=== PATIENT | female | born 1970 | race Caucasian/White ===

== ENCOUNTER 2020-04-24 14:39 | Outpatient (CLI) | payer MEDICAID, SELFPAY ==
[2020-04-24 14:54] LABS: Basophils Absolute Auto 0.1 K/mm3 (0.0-0.1); Basophils Percent Auto 0.9 % (0.2-1.2); Eosinophils Absolute Auto 0.3 K/mm3 (0-0.3); Eosinophils Percent Auto 3.6 % (0-4.4); Hematocrit 43.1 % (37.0-47.0); Hemoglobin 13.9 g/dL (12.0-15.0); Immature Granulocyte Absolute 0.01 K/mm3 (0.00-0.031); Immature Granulocyte Percent A 0.1 % (0-0.5); Immature Platelet Fraction Pct 12.5 % (0.9-11.2); Lymphocytes Absolute Auto 2.17 K/mm3 (0.9-3.2); Lymphocytes Percent Auto 31.3 % (18.3-44.2); Mean Corpuscular HGB Conc 32.3 g/dl (32-36); Mean Corpuscular Hemoglobin 27.6 pg (26-34); Mean Corpuscular Volume 85.7 fl (80-100); Monocytes Absolute Auto 0.5 K/mm3 (0.1-0.6); Monocytes Percent Auto 7.5 % (2.6-8.5); Neutrophils Absolute Auto 3.9 K/mm3 (1.3-6.7); Neutrophils Percent Auto 56.6 % (45.5-73.1); Platelet Count Result 213 k/mm3 (150-375); Red Blood Count 5.03 M/mm3 (4.2-5.4); Red Cell Distribution Width 22.2 % (11.5-14.5); White Blood Count 6.9 K/mm3 (4.5-10.0)
[2020-04-24 16:47] LABS: Iron 87 ug/dL (37-170)
[2020-04-24 16:50] LABS: Blood Urea Nitrogen 9 mg/dL (7-17); Calcium 9.6 mg/dL (8.4-10.2); Carbon Dioxide 30 mmol/L (22-30); Chloride 101 mmol/L (98-107); Estimated Glomerular Filt Rate > 60; Glucose 92 mg/dL (65-105); Potassium 4.1 mmol/L (3.4-5.0); Sodium 139 mmol/L (137-145)
[2020-04-24 17:01] LABS: Percent Iron Saturation 26 % (20-50)
== END 2020-04-24 14:40 | disposition home or self-care (01) ==
LOC: ANHLAB 14:42
PROVIDERS: PCP Physician Assistant; Visit Provider Internal Medicine Hematology & Oncology
DX: C50.412 Malignant neoplasm of upper-outer quadrant of left female breast (principal); Z17.0 Estrogen receptor positive status [ER+]; D50.9 Iron deficiency anemia, unspecified
CPT/HCPCS: 36415; 80048; 82728; 83540; 83550; 85025; 85055

== ENCOUNTER 2020-08-01 12:20 | Outpatient (CLI) | payer OTHER, MEDICAID, SELFPAY ==
[2020-08-01 13:00] LABS: Basophils Absolute Auto 0.1 K/mm3 (0.0-0.1); Basophils Percent Auto 0.8 % (0.2-1.2); Eosinophils Absolute Auto 0.4 K/mm3 (0-0.3); Eosinophils Percent Auto 5.3 % (0-4.4); Hematocrit 38.5 % (37.0-47.0); Hemoglobin 12.2 g/dL (12.0-15.0); Immature Granulocyte Absolute 0.03 K/mm3 (0.00-0.031); Immature Granulocyte Percent A 0.4 % (0-0.5); Lymphocytes Absolute Auto 2.41 K/mm3 (0.9-3.2); Lymphocytes Percent Auto 32.6 % (18.3-44.2); Mean Corpuscular HGB Conc 31.7 g/dl (32-36); Mean Corpuscular Hemoglobin 27.9 pg (26-34); Mean Corpuscular Volume 88.1 fl (80-100); Monocytes Absolute Auto 0.5 K/mm3 (0.1-0.6); Monocytes Percent Auto 6.8 % (2.6-8.5); Neutrophils Percent Auto 54.1 % (45.5-73.1); Platelet Count Result 230 k/mm3 (150-375); Red Blood Count 4.37 M/mm3 (4.2-5.4); Red Cell Distribution Width 12.9 % (11.5-14.5); White Blood Count 7.4 K/mm3 (4.5-10.0)
[2020-08-01 14:17] LABS: Erythrocyte Sedimentation Rate 22 mm/hr (0-20)
[2020-08-01 15:22] LABS: Iron 44 ug/dL (37-170)
[2020-08-01 15:24] LABS: Creatinine Urine 123.6 mg/dL; Total Protein Urine Random 6 mg/dL
[2020-08-01 15:25] LABS: Add Urine Microscopic? YES; Appearance Urine Clear (Clear); Bilirubin Urine Negative (Negative); Blood Urine Negative (Negative); Color Urine Yellow (Yellow); Glucose Urine UA Negative (Negative); Ketones Urine Negative (Negative); Leukocyte Esterase Ur Trace LEU/UL (Negative); Mucus Urine Rare /lpf; Nitrate Urine Negative (Negative); Protein Urine Negative (Negative); RBC Urine 0-2 /hpf (0-2); Specific Grav Ur 1.021 (1.001-1.035); Squamous Epithelial Cell Urine Many /hpf (Few); Urobilinogen Urine Negative mg/dL (<2.0); WBC Urine 0-3 /hpf
[2020-08-01 15:26] LABS: Alanine Aminotransferase 53 U/L (4-35); Alkaline Phosphatase 173 U/L (38-126); Anion Gap 7 mmol/L (8-16); Aspartate Amino Transferase 54 U/L (14-36); Bilirubin,Total 0.6 mg/dL (0.2-1.3); Blood Urea Nitrogen 13 mg/dL (7-17); CRP < 0.5 mg/dL (<1.0); Calcium 9.2 mg/dL (8.4-10.2); Carbon Dioxide 28 mmol/L (22-30); Chloride 101 mmol/L (98-107); Estimated Glomerular Filt Rate > 60; Glucose 95 mg/dL (65-105); Potassium 4.2 mmol/L (3.4-5.0); Sodium 136 mmol/L (137-145); Uric Acid 5.1 mg/dL (2.5-7.5)
[2020-08-01 15:30] LABS: Complement C3 142 mg/dL (88-165); Rheumatoid Factor < 8.6 IU/ML (<12)
[2020-08-01 15:33] LABS: Percent Iron Saturation 10 % (20-50)
[2020-08-01 15:38] LABS: Vitamin D 25 Hydroxy 12.9 ng/mL
[2020-08-01 15:57] LABS: Ferritin 8.97 ng/mL (6.24-137)
[2020-08-03 11:08] LABS: SS-A <1.0; SS-B <1.0
[2020-08-03 21:05] LABS: Lupus dRVVT 1:1 Mix Interpreta Not Indicated; Lupus dRVVT Screen 34 sec (<=45); PTT-LA Screen 37 sec (<=40)
[2020-08-03 21:26] LABS: Anti Cyclic Citrullinated Pept <16 Units (<20)
[2020-08-04 06:15] LABS: Angiotensin Converting Enzyme 22 U/L (9-67)
[2020-08-06 07:15] LABS: SM Antibody <1.0; SM/RNP Antibody <1.0
== END 2020-08-01 12:21 | disposition home or self-care (01) ==
PROVIDERS: Internal Medicine Hematology & Oncology; PCP Physician Assistant; Visit Provider Internal Medicine
DX: E55.9 Vitamin D deficiency, unspecified (principal); M05.79 Rheumatoid arthritis with rheumatoid factor of multiple sites without organ or systems involvement; M19.90 Unspecified osteoarthritis, unspecified site; D64.9 Anemia, unspecified; C50.412 Malignant neoplasm of upper-outer quadrant of left female breast; Z17.0 Estrogen receptor positive status [ER+]
CPT/HCPCS: 36415; 80053; 81001; 82164; 82306; 82570; 82728; 83540; 83550; 84156; 84550; 85025; 85613; 85652; 85730; 86038; 86140; 86160; 86200; 86225; 86235; 86430

== ENCOUNTER 2020-08-01 13:37 | Outpatient (CLI) | payer OTHER, SELFPAY ==
--- NOTE | ~2020-08-01 | XR_ITS ---
EXAMINATION: XR foot LT standing 2V EXAM DATE: 08/01/2020 14:12 INDICATION: Rheumatoid arthritis. TECHNIQUE: Left foot frontal and lateral projections. There is no prior study for comparison. FINDINGS: There is moderate talonavicular osteoarthritis, could be primary or posttraumatic. There a re no bony erosions identified. There are no acute fractures or dislocations identified. There is no subcutaneous gas. The soft tissue is unremarkable. There are no radiopaque foreign bodies. Tiny posterior calcaneal spur. IMPRESSION: Left talonavicular moderate osteoarthritis. Reviewed, dictated and finalized at location A.
--- NOTE | ~2020-08-01 | XR_ITS ---
EXAMINATION: XR foot RT standing 2V EXAM DATE: 08/01/2020 14:12 INDICATION: Rheumatoid arthritis. TECHNIQUE: Frontal and lateral projections of the right foot. There is no prior study for compariso n. FINDINGS: There are no bony erosions identified. There are no acute fractures or dislocations identi fied. There is no subcutaneous gas. The soft tissue is unremarkable. There are no radiopaque fore ign bodies. Small posterior and inferior calcaneal spurs. IMPRESSION: Small calcaneal spurs. Reviewed, dictated and finalized at location A. IMPRESSION: Small calcaneal spurs.
--- NOTE | ~2020-08-01 | XR_ITS ---
XR chest 2V DATE: 08/01/2020 14:12 INDICATION: Rheumatoid arthritis TECHNIQUE: PA and lateral views COMPARISON: None FINDINGS: Normal heart size. No hilar or mediastinal enlargement.. Mild infiltrate, atelectasis, mass or fibrotic change in the right upper lung; consider follow-up chest Sore CT thorax. The lungs otherwise appear clear of infiltrate or consolidation. No pleural effusion or pulmonary vascular congestion or pneumothorax. Bilateral breast implants. Surgical clips overlie the upper abdomen, likely due to cholecystectomy. IMPRESSION: Mild infiltrate, atelectasis, mass or fibrotic change is suggested right upper lobe; cons ider follow-up chest radiographs or CT thorax Reviewed, dictated and finalized at location A. IMPRESSION: Mild infiltrate, atelectasis, mass or fibrotic change is suggested right upper lobe; consider follow-up chest radiographs or CT thorax
--- NOTE | ~2020-08-01 | XR_ITS ---
EXAMINATION: XR hand BI arthritis min 3V EXAM DATE: 08/01/2020 14:12 INDICATION: Rheumatoid arthritis. Breast cancer. TECHNIQUE: Right hand frontal, lateral and oblique projections obtained and reviewed. Left hand fron azeb, lateral and oblique projections obtained and reviewed. Catchers projection of both hands. There is no prior study for comparison. FINDINGS: Right hand: Small punched-out periarticular erosions most apparent at the 2nd metacarpophalangeal marisel nt, 4th metacarpal head, and the scattered throughout the carpal bones, with significant loss of the radiocarpal and midcarpal joint spaces. Appearance is consistent with rheumatoid arthritis. There is ulnar minus variance. Left hand: Large erosion in the lunate at the scapholunate articulation, several other smaller carpal periarticular erosions suspected. Radiocarpal and midcarpal joint spaces are preserved. Metacarpopha langeal and interphalangeal joints are normal in appearance. IMPRESSION: Bilateral hand periarticular erosions consistent with rheumatoid arthritis, significantly more advanced on the right with loss of radiocarpal and midcarpal joint spaces. Reviewed, dictated and finalized at location A. IMPRESSION: Bilateral hand periarticular erosions consistent with rheumatoid ar thritis, significantly more advanced on the right with loss of radiocarpal and midcarpal joint spaces.
== END 2020-08-01 13:38 | disposition home or self-care (01) ==
LOC: ANHIMG 13:45
PROVIDERS: PCP Physician Assistant; Visit Provider Internal Medicine
DX: M05.79 Rheumatoid arthritis with rheumatoid factor of multiple sites without organ or systems involvement (principal); E55.9 Vitamin D deficiency, unspecified; M19.90 Unspecified osteoarthritis, unspecified site; M77.31 Calcaneal spur, right foot; M19.072 Primary osteoarthritis, left ankle and foot; R91.8 Other nonspecific abnormal finding of lung field
CPT/HCPCS: 71046; 73130; 73620

== ENCOUNTER 2021-09-11 08:03 | Outpatient (CLI) | payer MEDICAID, SELFPAY | END 2021-09-11 08:04 | disposition home or self-care (01) | LOC: ANHAUDIO 08:05 | PROVIDERS: PCP Physician Assistant; Visit Provider Nurse Practitioner Family | DX: H90.12 Conductive hearing loss, unilateral, left ear, with unrestricted hearing on the contralateral side (principal) | CPT/HCPCS: 92537; 92540; 92557; 92567 ==